=== PATIENT | female | born 2000 | race Caucasian/White ===

== ENCOUNTER 2021-06-04 16:25 | Emergency (ER) | payer OTHER ==
[2021-06-04 17:02] LABS: HEMOGLOBIN 15.7 gm/dl (12.3-15.3); RED BLOOD COUNT 5.44 M/UL (4.00-5.10); WHITE BLOOD COUNT 8.5 K/UL (4.5-11.0)
[2021-06-04 17:30] LABS: BUN/CREATININE RATIO 14 (0-10)
== END 2021-06-04 19:42 | disposition home or self-care (01) ==
LOC: ER1 16:25
PROVIDERS: Physician Assistant Medical
DX: R51.9 Headache, unspecified (principal)
CPT/HCPCS: 70450; 71045; 80053; 84484; 85025; 85652; 86140; 93005; 99284

== ENCOUNTER 2021-06-18 09:05 | Emergency (ER) | payer OTHER ==
[2021-06-18 10:24] LABS: HEMOGLOBIN 14.8 gm/dl (12.3-15.3); RED BLOOD COUNT 5.15 M/UL (4.00-5.10); WHITE BLOOD COUNT 6.6 K/UL (4.5-11.0)
[2021-06-18 11:00] LABS: BUN/CREATININE RATIO 16 (0-10)
== END 2021-06-18 12:35 | disposition home or self-care (01) ==
LOC: ER1 09:05
PROVIDERS: Family Medicine
DX: H53.8 Other visual disturbances (principal); R20.0 Anesthesia of skin; F12.90 Cannabis use, unspecified, uncomplicated
CPT/HCPCS: 70450; 70496; 70498; 80048; 80307; 82550; 82553; 82962; 83874; 84484; 84703; 85025; 93005; 99284; Q9967

== ENCOUNTER → 2021-07-02 | Emergency (ER) | payer OTHER ==
[~2021-07-02] MED LIST: ADULT GLYCERIN1 EACH PR; CEFUROXIME500 MG PO; DULCOLAX5 MG PO; ONDANSETRON ODT4 MG SL
[2021-07-02 14:52] LABS: RED BLOOD COUNT 5.45 M/UL (4.00-5.10); WHITE BLOOD COUNT 9.1 K/UL (4.5-11.0)
[2021-07-02 15:10] LABS: BUN/CREATININE RATIO 11 (0-10)
== END | disposition home or self-care (01) ==
LOC: ER1 12:58
PROVIDERS: Physician Assistant
DX: K59.00 Constipation, unspecified (principal); N39.0 Urinary tract infection, site not specified; I10 Essential (primary) hypertension; Z88.5 Allergy status to narcotic agent
CPT/HCPCS: 74018; 80053; 81001; 84703; 85025; 99284

== ENCOUNTER → 2021-09-25 | Outpatient (CLI) | payer OTHER | LOC: EMI 12:59 | DX: G43.109 Migraine with aura, not intractable, without status migrainosus (principal); G44.89 Other headache syndrome; R20.2 Paresthesia of skin; R90.82 White matter disease, unspecified | CPT/HCPCS: 70551 ==

== ENCOUNTER 2022-01-25 05:35 | Emergency (ER) | payer OTHER ==
[2022-01-25 06:05] LABS: HEMOGLOBIN 13.6 gm/dl (12.3-15.3); RED BLOOD COUNT 4.78 M/UL (4.00-5.10); WHITE BLOOD COUNT 6.7 K/UL (4.5-11.0)
[2022-01-25 06:24] LABS: BUN/CREATININE RATIO 13 (0-10)
[2022-01-25] MEDS ORDERED: BENTYL 20MG TAB20 MG PO (11:06)
[2022-01-25] MEDS ORDERED: ZOFRAN ODT 4 MG4 MG PO (11:06)
== END 2022-01-25 11:17 | disposition home or self-care (01) ==
LOC: ER1 05:35
PROVIDERS: Student in an Organized Health Care Education/Training Program
DX: K80.20 Calculus of gallbladder without cholecystitis without obstruction (principal); I10 Essential (primary) hypertension
CPT/HCPCS: 80053; 81001; 83690; 84703; 85025; 96374; 96375; 99284; J1885; J2405; Q9967